=== PATIENT | female | born 1990 | race Two or more races ===

== ENCOUNTER 2021-09-20 22:54 | Emergency (ER) | payer MEDICAID ==
[~2021-09-20] VITALS: Ht 154.9 cm; Wt 59.0 kg
[2021-09-21 03:08] LABS: Urine WBC None Seen /hpf (0 - 5)
[2021-09-21 03:23] LABS: Urine Bacteria FEW /hpf (None Seen); Urine Blood Negative /uL (Negative); Urine Specific Gravity 1.001 (1.001-1.035)
[2021-09-21 03:30] VITALS: BP 129/87
== END 2021-09-21 03:57 | disposition home or self-care (01) ==
LOC: ER 22:54
DX: T78.40XA Allergy, unspecified, initial encounter (principal); R00.2 Palpitations; R42 Dizziness and giddiness; X58.XXXA Exposure to other specified factors, initial encounter
CPT/HCPCS: 81001; 93005

== ENCOUNTER → 2021-11-10 | Emergency (ER) | payer MEDICAID ==
[~2021-11-10] VITALS: Ht 154.9 cm; Wt 57.2 kg
[2021-11-10 08:20] VITALS: BP 151/92
== END | disposition home or self-care (01) ==
LOC: ER 08:23
DX: R51.9 Headache, unspecified (principal); R42 Dizziness and giddiness; F41.8 Other specified anxiety disorders